=== PATIENT | female | born 1990 | race Two or more races ===

== ENCOUNTER 2020-03-04 10:51 | Emergency (ER) | payer OTHER ==
[~2020-03-04] VITALS: Ht 162.6 cm; Wt 54.4 kg
[2020-03-04 10:57] VITALS: BP 147/91
--- NOTE | 2020-03-04 11:06 | NUR ---
Dr. Chilel at bedside with safety sitter for eval
--- NOTE | 2020-03-04 11:25 | NUR ---
urine collected and sent to lab
--- NOTE | 2020-03-04 11:26 | NUR ---
wheeled patient going to CT
--- NOTE | 2020-03-04 11:33 | NUR ---
patient came back from ct
--- NOTE | 2020-03-04 11:59 | NUR ---
Patient discharged to home in stable condition. Written and verbal after care instructions given. Patient verbalizes understanding of instruction.
== END 2020-03-04 11:59 | disposition home or self-care (01) ==
LOC: ER 10:55
DX: R51 Headache (principal)
CPT/HCPCS: 70450-TC; 84703-TC

== ENCOUNTER 2021-08-20 21:40 | Emergency (ER) | payer OTHER ==
--- NOTE | 2021-08-20 22:33 | NUR ---
CALLED FOR TRIAGE. NO ANSWER
--- NOTE | 2021-08-20 22:41 | NUR ---
CALLED FOR TRIAGE. NO ANSWER
--- NOTE | 2021-08-20 23:00 | NUR ---
CALLED FOR TRIAGE. NO ANSWER
[2021-08-22] MEDS ORDERED: CEPH500C2 PO (15:22)
== END 2021-08-20 23:56 | disposition left against medical advice (07) ==
LOC: ER 21:44
DX: Z53.21 Procedure and treatment not carried out due to patient leaving prior to being seen by health care provider (principal)

== ENCOUNTER → 2021-08-22 | Emergency (ER) | payer OTHER ==
[~2021-08-22] VITALS: Ht 170.2 cm; Wt 58.1 kg
[~2021-08-22] MED LIST: CEPH500C2 PO
[2021-08-22 15:11] VITALS: BP 130/77
[2021-08-22 15:33] LABS: BILIRUBIN,URINE Negative (NEGATIVE); COLOR,URINE YELLOW (YELLOW); LEUKOCYTE ESTERASE ,URINE Negative (NEGATIVE); NITRITE, URINE Negative (NEGATIVE); PH,URINE 8.5 (5.0-8.0); PROTEIN,URINE Negative (NEGATIVE); UGLUCOSE Negative (NEGATIVE); UROBILINOGEN,URINE 0.2 EU/dL (0.2)
--- NOTE | 2021-08-22 15:50 | NUR ---
Patient discharged to home in stable condition. Written and verbal after care instructions given. Patient verbalizes understanding of instruction.
--- NOTE | 2021-08-22 15:51 | NUR ---
[facility] ERROR, CANNOT DEPART
== END | disposition home or self-care (01) ==
LOC: ER 16:05
DX: N34.2 Other urethritis (principal)
CPT/HCPCS: 84703-TC; 87086-TC

== ENCOUNTER 2022-07-23 20:57 | Emergency (ER) | payer OTHER ==
[~2022-07-23] VITALS: Ht 167.6 cm; Wt 59.9 kg
[2022-07-23 21:54] VITALS: BP 141/76
[2022-07-23 22:25] LABS: BASOPHILS % (AUTO) 0.4 % (0.0-2.0); EOSINOPHILS % (AUTO) 2.9 % (0.0-6.0); HEMATOCRIT 40 % (33-45); HEMOGLOBIN 13.3 g/dL (11.5-14.8); LYMPHOCYTES # (AUTO) 2.8 K/uL (0.8-4.8); LYMPHOCYTES % (AUTO) 40.4 % (20.0-44.0); MEAN CORPUSCULAR HGB CONC 34 g/dl (31.0-36.0); MEAN CORPUSCULAR VOLUME 88 fL (82-100); MONOCYTES # (AUTO) 0.6 K/uL (0.1-1.30); MONOCYTES % (AUTO) 8.1 % (2.0-12.0); NEUTROPHILS # (AUTO) 3.3 K/uL (1.8-8.9); NEUTROPHILS % (AUTO) 48.2 % (43.0-81.0); PLATELET COUNT (AUTO) 254 K/uL (150-450); WHITE BLOOD COUNT (AUTO) 6.9 K/uL (4.3-11.0)
[2022-07-23 22:40] LABS: CALCIUM, SERUM 9.1 mg/dL (8.5-10.1); CREATININE 0.7 mg/dL (0.6-1.3); POTASSIUM 4.3 mmol/L (3.5-5.1)
== END 2022-07-23 23:07 | disposition home or self-care (01) ==
LOC: ER 20:58
DX: L72.3 Sebaceous cyst (principal)
CPT/HCPCS: 36415; 80048-TC; 85025-TC

== ENCOUNTER 2022-12-28 08:50 | Emergency (ER) | payer OTHER ==
[~2022-12-28] VITALS: Ht 157.5 cm; Wt 63.5 kg
--- NOTE | 2022-12-28 09:00 | NUR ---
C/O PELVIC AREA PAIN UPON URINATION X 2 DAYS. +URGENCY, DENIES HEMATURIA.
--- NOTE | 2022-12-28 09:05 | NUR ---
AT BEDSIDE FOR EVAL
[2022-12-28] MEDS ORDERED: CEPH500C2 PO (09:07)
--- NOTE | 2022-12-28 09:10 | NUR ---
URINE COLLECTED AND SENT
[2022-12-28 09:11] VITALS: BP 126/77
--- NOTE | 2022-12-28 09:11 | NUR ---
Patient discharged to home in stable condition. Written and verbal after care instructions given. Patient verbalizes understanding of instruction.
== END 2022-12-28 09:12 | disposition home or self-care (01) ==
LOC: ER 08:52
DX: N39.0 Urinary tract infection, site not specified (principal)